=== PATIENT | female | born 1985 | race Hispanic/Latino ===

== ENCOUNTER 2017-08-25 07:21 | Day surgery (SDC) | payer MEDICAID ==
[2017-08-25] MEDS ORDERED: Lactated Ringer's 500 ML IV ONE (08:03)
[2017-08-25 08:17] VITALS: O2SAT 100
[2017-08-25] MEDS ORDERED: Midazolam 2 MG/2 ML VIAL ONE (08:42)
[2017-08-25] MEDS ORDERED: Propofol 10 mg/ml Inj (20 ML) ONE (08:42)
[2017-08-25 09:34] VITALS: BP 99/58; PULSE 76; RESP 15; TEMP 96.4
== END 2017-08-25 10:49 | disposition home or self-care (01) ==
LOC: H.ENDO 07:21
PROVIDERS: ATTEND Internal Medicine Gastroenterology
DX: K21.9 Gastro-esophageal reflux disease without esophagitis (principal); K44.9 Diaphragmatic hernia without obstruction or gangrene; K29.70 Gastritis, unspecified, without bleeding; K31.9 Disease of stomach and duodenum, unspecified; K31.89 Other diseases of stomach and duodenum; K30 Functional dyspepsia
CPT/HCPCS: 43239; 88305; J2250; J2704; J7120